=== PATIENT | female | born 1990 | race Caucasian/White ===

== ENCOUNTER 2024-12-21 13:54 | Outpatient (RCR) | payer OTHER, MEDICAID, SELFPAY ==
--- NOTE | 2024-12-21 14:44 | PTNOTE_ITS ---
PT OP Initial Eval Patient Information Outpatient Physical Therapy Treatment Date: 12/21/24 Visit Reasons: Low back pain Medical Diagnosis: Back Pain Treatment Dx #1: Back Pain Start of Care: 12/21/24 Date of Onset: 2014 Smoking Status Smoking Status: Never smoker Initial Assessment Subjective: Pt is a 34 y/o female reports of chronic back pain (04/05) with intermittent numbness down the legs. No MRI has been done thus far. Pt has limitation with sitting, standing, lifting, chores, self care, taking care of her son, and performing recreational activities. Objective: L/S AROM: all motions are WFL except pain with end range extension and left sidebending Hip PROM: all motions are WFL except IR Hip MMTs: grossly 3/5 Special Test (+) slump (+) SLR Assessment: Pt demonstrate back pain with mobility deficits consistent with possible disc involvement leading to difficulty with ADLs. Pt will attempt physical therapy if pain persist Pt will be refer back to provider for further consultation [employer] Goals 1) Decrease back pain to 2/10 in 6 wks to be able to sit and stand more than 30 mins 2) Increase L/S AROM WNL in 6 wks to be able to perform recreational activities 3) Increase core strength WFL in 6 wks to be able to perform lifting activities 4) Increase hip MMTs grossly to 4-/5 in 6 wks to be able to walk more than 30 mins 5) Indep with HEP Treatment Plan 1) Manual Therapy 2) Therapeutic Activities 3) Therapeutic Exercises 4) Modalities (ice, heat) Frequency and Duration: 2 x wk for 6 wks Certification Dates: 12/21/24 to 03/20/25 Procedure Charges OP PT Eval Mod Complex 30 minutes: Yes
== END 2024-12-24 23:59 | disposition home or self-care (01) ==
LOC: CPTX 13:54
PROVIDERS: PCP Internal Medicine; Referring Provider Internal Medicine; Visit Provider Internal Medicine
DX: M54.50 Low back pain, unspecified (principal); R20.0 Anesthesia of skin; G89.29 Other chronic pain
CPT/HCPCS: 97162

== ENCOUNTER 2025-01-10 13:00 | Outpatient (RCR) | payer OTHER, MEDICAID, SELFPAY ==
--- NOTE | 2024-12-27 14:47 | PT.ODAYNRPT ---
PT Outpatient Daily Note OP Daily Note Outpatient Physical Therapy Treatment Date: 12/27/24 Visit Reasons: low back pain Subjective: Pt c/o feeling like her BP is low, pt shared that she went to the doctor yesterday for ear pain and her BP was 116/80. Pt shared that this morning she also felt her HR was high and her heart beating fast. Pt has no way of measuring HR and has no BP machine at home. Objective: Please see flow sheet for ther ex list. BP 139/89, HR 86-90 bpm, Spo2 99% at RA. Assessment: Pt vitals WNL, taken at beginning of session. Pt has poor activity tolerance due to increase in LBP and LE symptoms with static position. Plan: Continue with pOC. Length of Time (minutes) of Treatment: 30 Minutes Procedure Charges Therapeutic Exercise 30 minutes: Yes
--- NOTE | 2024-12-31 15:24 | PT.ODAYNRPT ---
PT Outpatient Daily Note OP Daily Note Outpatient Physical Therapy Treatment Date: 12/31/24 Visit Reasons: low back pain Subjective: Pt's back felt sore after last session. Pt feels that pelvic tilt helps with the pain. Objective: Please see flow chart for list of ther ex performed Assessment: cues to correct pelvic tilt with legs in hooklying vs straight to improve activation. Pt slightly fatigue post PT session Plan: Continue with PT Length of Time (minutes) of Treatment: 30 Minutes Procedure Charges Therapeutic Exercise 30 minutes: Yes
--- NOTE | 2025-01-10 15:22 | PT.ODS1RPT ---
PT OP Progress/Discharge Note Date of Service: 01/10/25 Progress Note/DC Note Progress Note/Discharge Note: DC Note Patient Information Visit Reasons: low back pain Medical Diagnosis: Back Pain Treatment Dx #1: Back Pain Service Discharge Date: 01/10/25 Status Subjective: Pt notice her back pain is more intense when she is on her menstrual cycle. Physical therapy is helping a little, however, not significant changes. Due to back and LE pain Pt still has limitation with ADLs. At this time Pt will follow up with PCP for further consultation. Objective: L/S AROM: all motions are WFL except pain with extension Hip PROM: all motions are WFL Hip MMTs: grossly 3+/5 Special Test (+) slump (+) SLR Assessment: Pt continues to have back and LE pain leading to difficulty with ADLs. Pt further mention she has more intense back pain when she is on her menstrual cycle. Pt has been screen, however, nothing significant results. At this time Pt will stopped physical therapy and follow up with PCP with possible OBGYN consultation. Physical therapy also recommends lumbar spine MRI to help rule in/out back as part of the pain or possible nerve root impingement. Pt was instructed on HEP last session and educated to continue exercises to maintain overall mobility. Pt performed all exercises safely, thank you for your referrals. Plan: D/C home with HEP and follow up with provider PRN Recommend L/S MRI and OBGYN consult Procedure Charges Therapeutic Exercise 30 minutes: Yes
== END 2025-01-24 23:59 | disposition home or self-care (01) ==
LOC: CPTX 13:00
PROVIDERS: PCP Internal Medicine; Referring Provider Internal Medicine; Visit Provider Internal Medicine
DX: M54.50 Low back pain, unspecified (principal); R20.0 Anesthesia of skin; G89.29 Other chronic pain
CPT/HCPCS: 97110